=== PATIENT | female | born 1995 | race Caucasian/White ===

== ENCOUNTER → 2017-11-10 15:50 | Outpatient (CLI) | payer OTHER, SELFPAY ==
[2017-11-10 18:18] LABS: Internal QC Validated? YES +Cl - CLEAR BKGD; Pregnancy, Urine Negative Negative
== END ==
PROVIDERS: Visit Provider Physician Assistant
DX: L70.0 Acne vulgaris (principal); Z79.899 Other long term (current) drug therapy
CPT/HCPCS: 81025

== ENCOUNTER → 2017-12-22 15:24 | Outpatient (CLI) | payer OTHER, SELFPAY ==
[2017-12-22 18:37] LABS: Internal QC Validated? YES +Cl - CLEAR BKGD; Pregnancy, Urine Negative Negative
== END ==
PROVIDERS: Visit Provider Physician Assistant
DX: L70.0 Acne vulgaris (principal); Z79.899 Other long term (current) drug therapy
CPT/HCPCS: 81025

== ENCOUNTER → 2018-01-29 16:43 | Outpatient (CLI) | payer OTHER, SELFPAY ==
[2018-01-29 18:27] LABS: Internal QC Validated? YES +Cl - CLEAR BKGD; Pregnancy, Urine Negative Negative
== END ==
PROVIDERS: Visit Provider Physician Assistant
DX: L70.0 Acne vulgaris (principal); Z79.899 Other long term (current) drug therapy
CPT/HCPCS: 81025

== ENCOUNTER → 2019-09-29 12:10 | Outpatient (CLI) | payer SELFPAY ==
[2019-09-29 14:26] LABS: Internal QC Validated? YES +Cl - CLEAR BKGD; Pregnancy, Urine Negative Negative
== END ==
PROVIDERS: Referring Provider Physician Assistant Medical; Visit Provider Physician Assistant Medical
DX: L70.0 Acne vulgaris (principal); L71.0 Perioral dermatitis; Z79.899 Other long term (current) drug therapy
CPT/HCPCS: 81025

== ENCOUNTER → 2019-11-05 14:35 | Outpatient (CLI) | payer SELFPAY ==
[2019-11-05 15:52] LABS: Internal QC Validated? YES +Cl - CLEAR BKGD; Pregnancy, Urine Negative Negative
== END ==
PROVIDERS: Referring Provider Physician Assistant Medical; Visit Provider Physician Assistant Medical
DX: L70.0 Acne vulgaris (principal); L20.84 Intrinsic (allergic) eczema; Z79.899 Other long term (current) drug therapy
CPT/HCPCS: 81025